=== PATIENT | female | born 1995 | race Caucasian/White ===

== ENCOUNTER 2016-12-27 10:14 | Emergency (ER) | payer OTHER ==
[2016-12-27 10:19] VITALS: BP 108/67; PULSE 66; RESP 16; TEMP 97.9; O2SAT 98
--- NOTE | 2016-12-27 11:05 | EDPHY ---
H & P Stated Complaint: neck and back spasms r/t old inj Time Seen by Provider: 12/27/16 11:05 - Personal History LMP (Females 10-55): 15-21 Days Ago Current Tetanus/Diphtheria Vaccine: Yes - Medical/Surgical History Hx Asthma: No Hx Chronic Respiratory Disease: No Hx Diabetes: No Hx Cardiac Disease: No Hx Renal Disease: No Hx Cirrhosis: No Hx Alcoholism: No Hx HIV/AIDS: No Hx Splenectomy or Spleen Trauma: No Other PMH: neck problems - Social History Smoking Status: Current every day smoker Constitutional: Initial Vital Signs Temperature (C) 36.6 C 12/27/16 10:17 Heart Rate 66 12/27/16 10:17 Respiratory Rate 16 12/27/16 10:17 Blood Pressure 108/67 12/27/16 10:17 O2 Sat (%) 98 12/27/16 10:17 O2 Delivery Mode Room Air Allergies/Adverse Reactions: No Known Allergies Allergy (Unverified 12/27/16 10:16) Home Medications: Medication Instructions Recorded methylPREDNISolone [Medrol Dose 1 each PO AD #1 ea 12/27/16 [place]] oxyCODONE IR [Oxycodone Ir (*)] 5 - 10 mg PO Q6 PRN #20 tab 12/27/16 Medical Decision Making ED Course/Re-evaluation: CHIEF COMPLAINT: Neck/back pain HISTORY OF PRESENT ILLNESS: This patient is a 21 year old female complaining of upper back and neck pain onset yesterday. She injured her back last summer, but it resolved. Her current pain is similar to that incurred with her prior injury, and she felt a "spasm" yesterday prior to onset. Her pain is localized to her left side of her neck and trapezius muscle and radiates down her left arm slightly when she moves. She denies left arm weakness. She denies recent trauma or illness. REVIEW OF SYSTEMS: A 10 point review of systems was performed and is negative with the exception of the elements mentioned in the history of present illness. PHYSICAL EXAM: HR, BP, O2 Sat, RR. Temp noted General Appearance: Alert, well hydrated, appropriate, and non-toxic appearing. Head: Atraumatic without scalp tenderness or obvious injury Eyes: Pupils equal, round, reactive to light and accommodation, EOMI, no trauma , no injection. Nose: Atraumatic, no rhinorrhea, clear. Throat: Mucus membranes moist. Neck: Tenderness to left side of neck and left trapezius muscle. ROM limited due to pain. Supple, no lymphadenopathy. Respiratory: No retractions, no distress, no wheezes, and no accessory muscle use. Lungs are clear to auscultation bilaterally. Cardiovascular: Regular rate and rhythm, no murmurs, rubs, or gallops. Bilateral carotid pulses intact. Good capillary refill all extremities. Gastrointestinal: Abdomen is soft, nontender, non-distended. Musculoskeletal: Normal active ROM of all extremities, atraumatic. Neurological: Alert, appropriate, and interactive. The patient has normal DTRs and non-focal cranial nerves, motor, sensory, and cerebellar exam. Skin: No rashes, good turgor, no nodules on palpation. Past medical history: Neck problems Past surgical history: Noncontributory Family history: Noncontributory Social history: Lives in [place]. [employer] Student. DIFFERENTIAL DIAGNOSIS: The differential diagnosis for the patient's back pain included but was not limited to musculo-skeletal pain, epidural abscess, herniated disk, spinal fracture. MEDICAL DECISION MAKING: This 21 year old female presents with left-sided neck pain radiating to her trapezius muscle and down her left arm with movement. ROM limited due to pain. Imaging not indicated at this point. No recent trauma. Plan to discharge home in good condition with prescription for Oxycodone IR and Medrol Dosepak for symptom relief. She will follow up with a victims advocate clerk/specialist, MRI can be completed at that time if warranted. Return precautions discussed. The patient is comfortable with this plan. Departure - Departure Disposition: Home, Routine, Self-Care Clinical Impression: Cervical disc herniation Condition: Good Instructions: Cervical Disc Herniation (ED) Additional Instructions: 1. Take your Medrol Dosepak as prescribed. Take Oxycodone IR as prescribed as needed for severe pain. You may also take Ibuprofen 800mg every 8 hours as needed for pain. 2. Follow up with a victims advocate clerk/specialist for continued evaluation of your symptoms. We have referred you to our neurosurgeon telephone services sales representative. 3. Return to the emergency department for worsening pain, numbness or tingling, difficulty breathing, or other worsening of condition. Referrals: NONE *PRIMARY CARE P,. [Primary Care Provider] - As per Instructions Jaziel Saavdera MD [Medical Doctor] - As per Instructions Stand Alone Forms: School Excuse Prescriptions: methylPREDNISolone [Medrol Dose [place]] 1 each PO AD #1 ea oxyCODONE IR [Oxycodone Ir (*)] 5 - 10 mg PO Q6 PRN #20 tab PRN Reason: Pain, Severe Report Scribed for: Wagner Pacheco Report Scribed by: Angeles Evangelista Date of Report: 12/27/16 Time of Report: 12:05
== END 2016-12-27 12:25 | disposition home or self-care (01) ==
DX: M50.20 Other cervical disc displacement, unspecified cervical region (principal); F17.200 Nicotine dependence, unspecified, uncomplicated